=== PATIENT | male | born 1995 | race Caucasian/White ===

== ENCOUNTER 2020-02-03 18:22 | Emergency (ER) | payer SELFPAY | END 2020-02-03 18:44 | disposition other institution (70) | LOC: COL.ER 18:22 | DX: Z72.9 Problem related to lifestyle, unspecified (principal) ==

== ENCOUNTER → 2020-02-22 | Outpatient (CLI) | payer OTHER | LOC: ZCOL.LAB 16:53 | DX: Z20.828 Contact with and (suspected) exposure to other viral communicable diseases (principal) ==